=== PATIENT | female | born 1955 | race Hispanic/Latino ===

== ENCOUNTER 2018-06-14 09:18 | Emergency (ER) | payer BC ==
[~2018-06-14] VITALS: Ht 154.9 cm; Wt 72.6 kg
--- OUTSIDE RECORDS SUMMARY | 2018-06-14 09:22 | XMS REPORT | Encounter Summary ---
Author Organization Unknown Address [address] [place] [address] Phone [phone] Care Team Providers Care Photo Stylist Name Role Phone Benny Otto 3 [phone] Reason for Visit Right Medical Complaint Instructions 1. Dysfunction of right eustachian tube Medrol (Sandoval) 4 mg tablets in a dose pack fluticasone 50 mcg/actuation nasal spray,suspension Discussion Note Pt is in NAD; Verbalizes understanding of all instructions with no questions at this time. Patient educational handouts: No information available. Plan of Care Patient Instructions Take fluticasone as needed for ear congestion. [place] one spray in each nostril twice a day. Take a warm, steamy shower, blow your nose thereafter, and spray in each nostril. Tilt your head up for about 10 seconds and breath through your mouth. Do not sniff or snort the medication in or else the medication will go to your throat and not be absorbed appropriately. Alternate with Ibuprofen and acetamin ophen every 4hrs as needed for ear pain. Take steroid taper as directed with food. Take medications as prescribed and follow up with a PCP or ENT within 2-3 if symptoms worsen as discussed. Reminders Provider Appointments None recorded. Lab None recorded. Referral None recorded. Procedures None recorded. Surgeries None recorded. Imaging None recorded. Medications Name Start Date bupropion HCl XL 150 mg 24 hr tablet, extended release fluticasone 50 mcg/actuation nasal spray,suspension [place] 2 sprays every day by intranasal route as needed for 10 days. Medrol (Sandoval) 4 mg tablets in a dose pack TAKE PO DIRECTED WITH FOOD Medications Administered None recorded. Vitals Height Weight BMI Blood Pressure 5 ft 128 lbs 25 kg/m2 136/80 mm[Hg] Lab Results None recorded. Allergies Code Code System Name Reaction Severity Status Onset NKDA Problems None recorded. Procedures Date Name Performed by Tubal Ligation Information not available Vaccine List Vaccine Type influenza, unspecified formulation 12/21/2016 Social History Smoking Status Current Some Day Smoker Past Encounters 01/08/2017 Dysfunction of Right Eustachian Tube Tisha Nicole, [facility]: [address] [facility], [place] [address], Ph. History of Present Illness Ear Complaint Reported By: Patient HPI: Location: right. Quality: ears feel full/plugged, muffled, throbbing, aching. Severity: continuous, moderate, current pain 7/10. Duration: constant; X 1 days. Onset/Timing: worse, abrupt onset. Context: no sick contacts, no recent swimming/water in ear, no exposure to second hand smoke, no head trauma, not grinding teeth, no recent air travel. Modifying factors: does not hurt to chew, hurts to lie on, or pull on ear. Associated Symptoms: no discharge from the ears, no nose/sinus problems, no popping noise in the ears, no ringing in the ears, no fever, no chills, no dizziness, no vertigo, no headache, no muscle aches, earache Review of Systems:ROS as noted in the HPI Review of Systems Basic Reported By: Patient Physical Exam Adult Basic, Adult Female Complete Reported By: Patient Constitutional: General Appearance: healthy-appearing, well-nourished, well-developed. Level of Distress: NAD. Ambulation: ambulating normally Psychiatric: Mental Status: active and alert. Orientation: to time, to place, to person Eyes: Lids and Conjunctivae: non-injected, no discharge, no pallor. Pupils: PERRLA. Vision: ; B/L peripheral vision grossly intact Jsj-Euub-Mpqfi-Throat: Ears: no lesions on external ear, EACs clear, TMs clear, outer ear tenderness, middle ear fluid. Hearing: no hearing loss. Nose: no lesions on external nose, nares patent, no septal deviation, nasal passages clear, no sinus tenderness, no nasal discharge. Lips, Teeth, and Gums: no mouth or lip ulcers, no bleeding gums, normal dentition. Oropharynx: moist mucous membranes, no erythema, no exudates, tonsils not enlarged Neck: Neck: supple. Lymph Nodes: no cervical LAD Lungs: Respiratory effort: no dyspnea, no tachypnea, no use of accessory muscles, no intercostal retractions. Auscultation: breath sounds normal Cardiovascular: Heart Auscultation: RRR, no murmurs Neurologic: Gait and Station: normal gait, normal station. Cranial Nerves: grossly intact. Sensation: grossly intact. Reflexes: DTRs 2+ bilaterally throughout. Coordination and Cerebellum: [id number]-kq-gpsq intact, no tremor; Negative romberg
--- OUTSIDE RECORDS SUMMARY | 2018-06-14 09:22 | XMS REPORT | Continuity of Care Document ---
Author Author [facility] Interface Address Unknown Phone Unavailable Problems Problem Status Onset Date Classification Date Reported Comments Source Dysfunction of right eustachian tube 01/08/2017 Diagnosis 01/08/2017 [facility] Medications Medication Details Route Status Patient Instructions Ordering Provider Order Date Source 24 HR Bupropion Hydrochloride 150 MG Extended Release Oral Tablet bupropion HCl XL 150 mg 24 hr tablet, extended release Active [facility] Fluticasone propionate 0.05 MG/ACTUAT Metered Dose Nasal [place] fluticasone 50 mcg/actuation nasal spray,suspension [place] 2 sprays every day by intranasal route as needed for 10 days. Active [facility] Medrol (Sandoval) 4 mg tablets in a dose pack Medrol ([place]) 4 mg tablets in a dose pack TAKE PO DIRECTED WITH FOOD Active [facility] Allergies, Adverse Reactions, Alerts Substance Category Reaction Severity Reaction type Status Date Reported Comments Source Immunizations Immunization Date Given Site Status Last Updated Comments Source influenza, unspecified formulation 12/21/2016 completed [facility] Results Order Name Results Value Reference Range Date Interpretation Comments Source Vital Signs Vital Sign Value Date Comments Source Diastolic (mm Hg) 80 01/08/2017 [facility] Height 60 01/08/2017 [facility] Systolic (mm Hg) 136 01/08/2017 [facility] Weight 128 01/08/2017 [facility] Encounters Location Location Details Encounter Type Encounter Number Reason For Visit Attending Provider ADM Date DC Date Status Source [place] - [facility] - [id number] Nicole, OPERATING ROOM SURGICAL TECHNOLOGIST-C: [address] [place] [address], Ph. [id number] Tisha Nicole 01/08/2017 [facility] Procedures Procedure Code Date Perfomer Comments Source Tubal Ligation [facility]
--- OUTSIDE RECORDS SUMMARY | 2018-06-14 09:22 | XMS REPORT | Clinical Summary ---
Author Author [facility] Organization [facility] Address Unknown Phone Unavailable Care Team Providers Care Underwriter Name Role Phone Hilda Perkins MD PCP Unavailable Allergies Not on File Medications Not on file Active Problems Not on file Social History Date Tobacco Use Types Packs/Day Years Used Never Assessed Sex Assigned at Date Recorded Not on file Industry Job Start Date Occupation Not on file Not on file Not on file Travel End Travel History Travel Start No recent travel history available. Last Filed Vital Signs Not on file Plan of Treatment Care Team Description Date Type Specialty [facility]Alida Palomares MD [facility] [address] [address] 06/28/2018 Office Visit Internal Medicine Health Maintenance Due Date Last Done Comments CERVICAL CANCER SCREENING 1977 BREAST CANCER SCREENING 2006 COLON CANCER SCREENING 2006 SHINGLES VACCINES (#1) 2006 INFLUENZA VACCINE 10/04/2018 Results Not on fileafter 06/13/2017 Insurance Payer Benefit Subscriber ID Type Phone Address Plan / Group BCBS BCBS xxxxxxxxxxxx PPO CHOICE PPO/[employer] EM[employer] PPO [address] (Home) [place] [address] (Work) Advance Directives Patient has advance care planning documents on file. For more information, allan mcbride contact: [facility] [address] [place] [phone]
--- OUTSIDE RECORDS SUMMARY | 2018-06-14 09:22 | XMS REPORT ---
Author Author [facility] Organization [facility] Address Unknown Phone Unavailable Care Team Providers Care Packer And Carry Out Name Role Phone CARRIE FINNEGAN Unavailable Unavailable ELIZABET GARCIA Unavailable Unavailable LASHAEROYAL Unavailable Unavailable BAILEY, A ILIR Unavailable Unavailable Payers Payer Name Policy Type Policy Number Effective Date Expiration Date Problems This patient has no known problems. Allergies, Adverse Reactions, Alerts This patient has no known allergies or adverse reactions. Medications This patient has no known medications. Results Test Description Test Time Test Comments Text Results Atomic Results Result Comments US RENAL RETROPERITONEAL COMP 2018-05-30 07:17:00 [place] [address] Patient Name: HOLLIS MELENDEZ MR #: [id number] : 1955 Age/Sex: 62/F Req #: [id number] Adm Physician: Ordered by: CARRIE FINNEGAN MD Report #: [id number] Location: US Room/Bed: Procedure: [id number] US/US RENAL RETROPERITONEAL COMP Exam Date: 05/29/18 Exam Time: 1600 REPORT STATUS: Signed EXAMINATION: Renal ultrasound. CLINICAL H ISTORY :Hematuria COMPARISON: <None available.> TECHNIQUE: Grayscale and color Doppler evaluation of the kidneys and bladder was performed in transverse and longitudinal planes. DISCUSSION: RIGHT KIDNEY: The right kidney measures 9.6 cm in length and shows normal echogenicity. No hydronephrosis, shadowing calculi or solid mass lesions. LEFT KIDNEY: The left kidney measures 10 cm in length and shows normal echogenicity. No hydronephrosis, shadowing calculi or solid mass lesions. BLADDER: Unremarkable. Right and left ureteral jets are identified. IMPRESSION: Unremarkable sonographic appearance of the kidneys. Signed by: Dr. Blue Thao M.D. on 05/30/2018 7:18 AM Dictated By: BLUE THAO MD 7 Transcribed By: SUE on 05/30/18717 COPY TO: CARRIE FINNEGAN MD ABDOMEN-1VIEW (KUB) 2018-05-29 16:11:00 [place] [address] Patient Name: HOLLIS MELENDEZ MR #: [id number] : 1955 Age/Sex: 62/F Req #: [id number] [facility] Physician: Ordered by: CARRIE FINNEGAN MD Report #: [id number] Location: Room/Bed: Procedure: [id number] DX/ABDOMEN-1VIEW (KUB) Exam Date: 05/29/18 Exam Time: 1525 REPORT STATUS: Signed RADIOGRAPH(S) OF THE ABDOMEN AND PELVIS, 2 view(s) HISTORY: Asymptomatic microscopic hematuria, UTI,, pain COMPARISON: Abdominal pelvic radiograph image April 22, 2013 FINDINGS: Overlying metallic clothing artifacts. No specific evidence of obstruction or ileus. No definite urinary tract calcification. Slightly increased right pelvic calcification, now 3 mm, likely a vascular calcification. Bilateral moderate sacroiliac and mild hip degenerative changes. The bones are partially obscured by stool and overlying bowel gas. IMPRESSION: 1. Nonobstructive bowel gas pattern. 2. No definitive urinary tract stone. Signed by: Dr. Graham Davis D.O., M.M.M. on 05/29/2018 4:15 PM Dictated By: GRAHAM DAVIS DO 14 Transcribed By: SUE on 05/29/181614 COPY TO: CARRIE FINNEGAN MD CERVICAL SPINE 4 OR 5 VIEWS 2017-11-29 08:36:00 [place] [address] Patient Name: HOLLIS MELENDEZ MR #: [id number] : 1955 Age/Sex: 61/F Req #: [id number] Adm Physician: Ordered by: ELIZABET GARCIA MD Report #: [id number] Location: [facility] Room/Bed: Procedure: [id number] DX/CERVICAL SPINE 4 OR 5 VIEWS Exam Date: 11/29/17 Exam Time: 0750 REPORT STATUS: Signed PROCEDURE: C-SPINE COMPLETE COMPARISON: None. INDICATIONS: CERVICALGIA FINDINGS: C1 through the upper aspect of C7 are visualized on the lateral view. Oblique views demonstrate the entire C7 vertebral body. The spine is in anatomic alignment without evidence of fracture or subluxation. Vertebral body heights are maintained. C1-C2 alignment is maintained. Mild degenerative disc changes are noted. No significant neural foraminal stenosis. The prevertebral soft tissues are normal. CONCLUSION: No acute osseous abnormality. Mild degenerative disc changes of the cervical spine. Dictated by: VALERIE ARORA M.D. on 11/29/2017 at 8:35 Electronically approved by: VALERIE ARORA M.D. on 11/29/2017 at 8:35 Dictated By: VALERIE ARORA MD 5 Transcribed By: DENVER on 11/29/17835 COPY TO: ELIZABET GARCIA MD BONE DXA DUAL ENERGY [place] [address] Patient Name: HOLLIS MELENDEZ MR #: [id number] : 1955 Age/Sex: 61/F Req #: [id number] Adm Physician: Ordered by: ROYAL BHARDWAJ MD Report #: [id number] Location: DX Room/Bed: Procedure: [id number] DX/BONE DXA DUAL ENERGY Exam Date: Exam Time: REPORT STATUS: Signed EXAM: DXA BONE DENSITY INDICATIONS: Screening for Osteoporsis COMPARISON: March 25, 2013; November 13, 2014. FINDINGS: Proximal left femur bone mineral density (BMD) (g/cm2): 0.774 Femur T-score (standard deviation relative to young adult mean BMD): -1.4 Femur Z-score (standard deviation relative to age-matched control group): -0.4 Lumbar bone mineral density (BMD) (g/cm2): 0.820 Lumbar T-score (standard deviation relative to young adult mean BMD): -2.1 Lumbar Z-score (standard deviation relative to age-matched control group): -0.6 Change since prior exam (%): Femur: -6.4%. Spine: -0.2 Change since oldest prior exam (%): Femur: -6.1%. Spine: -0.6 CONCLUSION: WHO bone mineral classification: Osteopenia. Major osteoporotic fracture risk is 4.3% over 10 years, with hip fracture is 0.6%. There is a statistically significant decrease in bone mineral density of the left hip. World Health Organization Classification: *The Z-score is provided for informational purposes. The T- score is preferable for clinical decisions. When comparing exams, a change of >4% is considered statistically significant. SUGGESTED RECOMMENDATIONS: Normal T Osteopenia: Calcium supplementation, daily multiple vitamins, and adequate exercise as preventive measures against osteoporosis, if clinically indicated. Osteoporosis T Severe Osteoporosis: In addition to the above, consider pharmacologic therapy. Dictated by: Breezy Calixto M.D. on 06/28/2017 at 11:53 Electronically approved by: Breezy Calixto M.D. on 06/28/2017 at 11:53 Dictated By: BREEZY CALIXTO MD 1153 Transcribed By: DENVER on 06/28/17 1153 COPY TO: ROYAL BHARDWAJ MD MAMMOGRAM DIGITAL SCR BI [place] [address] Patient Name: HOLLIS MELENDEZ MR #: [id number] : 1955 Age/Sex: 61/F Req #: [id number] Adm Physician: Ordered by: ILIR AVALOS M.D. Report #: [id number] Location: MAMMO Room/Bed: Procedure: [id number] MG/MAMMOGRAM DIGITAL SCR BI Exam Date: 04/18/17 Exam Time: 09 REPORT STATUS: Signed #[id number] - [id number] #BILATERAL DIGITAL SCREENING MAMMOGRAM WITH CAD: 04/18/2017 CLINICAL: Routine screening. Comparison is made to exams dated: 11/25/2015 mammogram, 11/13/2014 mammogram and 11/14/2013 mammogram - [facility]. Current study contains 4 films. There are scattered fibroglandular elements in both breasts. Current study was also evaluated with a Computer Aided Detection (CAD) system. There is a benign calcification in the left breast. No significant masses, calcifications, or other findings are seen in either breast. There has been no significant interval change. IMPRESSION: BENIGN There is no mammographic evidence of malignancy. A 1 year screening mammogram is recommended. The patient will be notified by letter of the results. Gregorio santos/kailey:04/24/2017 14:28:39 Body Man: Monserrat FOSTER(Mina)(Zana), [facility] letter sent: Compared to Prior B9 Mammogram BI-RADS: 2 Benign Dictated By: GREGORIO BOOGIE DO 1423 Transcribed By: KAILEY on 04/24/17 142 COPY TO: ILIR AVALOS M.D.
== END 2018-06-14 11:08 | disposition home or self-care (01) ==
LOC: FSED 09:18
DX: R05 Cough (principal); J30.2 Other seasonal allergic rhinitis; J30.1 Allergic rhinitis due to pollen
CPT/HCPCS: 83518; 87400; 99283